=== PATIENT | female | born 1980 | race Two or more races ===

== ENCOUNTER 2024-01-30 11:50 | Emergency (ER) | payer MEDICAID ==
[~2024-01-30] VITALS: Ht 152.4 cm; Wt 60.8 kg
[2024-01-30 12:05] VITALS: BP 150/72; PULSE 70; RESP 16; TEMP 98.6; O2SAT 99
[2024-01-30] MEDS ORDERED: DIPH25CA83 MT ×2 (12:38→13:34)
[2024-01-30] MEDS ORDERED: TC1U15 TP (12:38)
[2024-01-30] MEDS: DIPHENHYDRAMINE 25MG CAPSULE PO ONE (13:31)
[2024-01-30] MEDS: DEXAMETHASONE 10 MG/ML VIAL PO ONE (13:31)
== END 2024-01-30 14:03 | disposition home or self-care (01) ==
LOC: ER 11:50
DX: L23.9 Allergic contact dermatitis, unspecified cause (principal)
CPT/HCPCS: 99283; Q0163; J1100

== ENCOUNTER 2024-04-20 19:42 | Emergency (ER) | payer MEDICAID ==
[~2024-04-20] VITALS: Ht 154.9 cm; Wt 62.0 kg
[~2024-04-20 19:42] MED LIST: DIPH25CA83 MT; TC1U15 TP
[2024-04-20 20:21] VITALS: BP 129/45; PULSE 78; TEMP 98.3; O2SAT 99
[2024-04-20 22:15] VITALS: RESP 17
[2024-04-20] MEDS: KETOROLAC 15MG/ML VIAL IM ONE (22:43)
[2024-04-20] MEDS: DEXAMETHASONE 10 MG/ML VIAL IM ONE (22:43)
[2024-04-20] MEDS: METOCLOPRAMIDE HCL 10MG/2ML VIAL IM ONE (22:43)
== END 2024-04-20 23:23 | disposition home or self-care (01) ==
LOC: ER 19:42
DX: R51.9 Headache, unspecified (principal)
CPT/HCPCS: 96372; 99284; J1100; J1885; J2765; Z7610